=== PATIENT | female | born 1975 | race Caucasian/White ===

== ENCOUNTER → 2022-01-14 | Emergency (ER) | payer OTHER ==
[~2022-01-14] VITALS: Ht 157.5 cm; Wt 78.0 kg
[~2022-01-14] MED LIST: MIRALAX510 GM PO; THYROID
== END | disposition home or self-care (01) ==
LOC: ER 18:43
DX: R10.32 Left lower quadrant pain (principal); K59.09 Other constipation; Z20.822 Contact with and (suspected) exposure to COVID-19